=== PATIENT | female | born 1950 | race Caucasian/White ===

== ENCOUNTER 2019-05-19 08:04 | Inpatient (IN) ==
--- NOTE | 2019-05-05 13:16 | PAT Medication Instructions ---
Medication Instructions Date of Service May 05, 2019 Home Medications Lactobacillus acidophilus [Florajen] 460 mg PO DAILY artificial tears(hypromellose) [Systane Gel] 1 drp OPHTHALMIC (EYE) HS cholecalciferol (vitamin D3) [Vitamin D3] 125 mcg PO QAM cyanocobalamin (vitamin B-12) [Vitamin B-12] 1,000 mcg PO QAM cyclosporine [Restasis] 1 drp OPHTHALMIC (EYE) BID diclofenac sodium 4 g TOPICAL BID PRN duloxetine 60 mg PO QAM labetalol 200 mg PO BID latanoprost 1 drp OPHTHALMIC (EYE) HS levothyroxine [Synthroid] 137 mcg PO QAM lorazepam 0.5 mg PO BID PRN meclizine 25 mg PO UD PRN meloxicam 15 mg PO UD PRN solifenacin 5 mg PO QAM ASK your surgeon for instructions meloxicam 15 mg PO UD PRN STOP taking 24 hours before surgery diclofenac sodium 4 g TOPICAL BID PRN DO NOT take the morning of surgery Lactobacillus acidophilus [Florajen] 460 mg PO DAILY cholecalciferol (vitamin D3) [Vitamin D3] 125 mcg PO QAM cyanocobalamin (vitamin B-12) [Vitamin B-12] 1,000 mcg PO QAM solifenacin 5 mg PO QAM Take morning of surgery With a small sip of water, OTHERWISE NOTHING TO EAT OR DRINK AFTER MIDNIGHT: cyclosporine [Restasis] 1 drp OPHTHALMIC (EYE) BID duloxetine 60 mg PO QAM labetalol 200 mg PO BID levothyroxine [Synthroid] 137 mcg PO QAM lorazepam 0.5 mg PO BID PRN (if needed) meclizine 25 mg PO UD PRN (if needed) Take evening before surgery artificial tears(hypromellose) [Systane Gel] 1 drp OPHTHALMIC (EYE) HS cyclosporine [Restasis] 1 drp OPHTHALMIC (EYE) BID labetalol 200 mg PO BID latanoprost 1 drp OPHTHALMIC (EYE) HS lorazepam 0.5 mg PO BID PRN (if needed) meclizine 25 mg PO UD PRN (if needed) Other Notes If you have any questions please call us at [phone] or [phone] or [phone] or [phone]
--- NOTE | 2019-05-06 12:29 | Anesthesiology Consultation ---
Date of Service May 06, 2019 Assessment & Plan (1) Encounter for pre-operative examination: - Cardiology: 05/03/19: "Low to moderate risk" - Anxious RE surgery: requests anxiolytic prior to surgery if possible. Chart Review Chart Review: Acceptable Risk for Surgery and Patient seen in Pre Admission Testing Teaching & Discussion Pre-Anesthesia Teaching/Discussion Notes: Instructed NPO after midnight before surgery,except medications with 15 cc of water. Medication instructions provided according to the PAT guidelines. History Surgery Operation Date: 05/19/19 09:20 Proposed Procedures p Left Total Shoulder Arthroplasty Cemented - [employer] Gaming MD Height/Weight Height: 5 ft 4 in Weight: 107.9 kg Allergies Allergy/AdvReac Type Severity Reaction Status Date / Time carbamazepine Allergy Severe MOBILITY Verified 05/05/19 12:19 ISSUES, INCRASED ANXIETY tramadol Allergy Severe LEGS HEAVY Verified 05/05/19 12:19 AND NUMBNESS, DISORIENTED amlodipine Allergy Unknown LEG AND Verified 05/05/19 12:17 FOOT SWELLING Cephalosporins Allergy Unknown ITCHINESS Verified 05/05/19 12:17 diclofenac [From Voltaren] Allergy Unknown HX OF Verified 05/05/19 12:17 ITCHINESS - SEE NOTES BELOW nabumetone Allergy Unknown EYE Verified 05/05/19 12:17 SWELLING oxcarbazepine Allergy Unknown BLOOD Verified 05/05/19 12:19 [From Trileptal] PRESSURE AND PULSE INCREASED amitriptyline AdvReac Unknown COUGHING Verified 05/05/19 12:19 lisinopril AdvReac Unknown Cough Verified 05/05/19 12:17 metoprolol AdvReac Unknown NOT Verified 05/05/19 12:17 EFFECTIVE valsartan AdvReac Unknown NOT Verified 05/05/19 12:17 EFFECTIVE Medications Home Medications Medication Instructions Recorded Confirmed Last Taken Lactobacillus acidophilus 460 mg PO DAILY 05/05/19 05/05/19 Unknown [Florajen] artificial tears(hypromellose) 1 drp OPHTHALMIC (EYE) HS 05/05/19 05/05/19 Unknown [Systane Gel] cholecalciferol (vitamin D3) 125 mcg PO QAM 05/05/19 05/05/19 Unknown [Vitamin D3] cyanocobalamin (vitamin B-12) 1,000 mcg PO QAM 05/05/19 05/05/19 Unknown [Vitamin B-12] cyclosporine [Restasis] 1 drp OPHTHALMIC (EYE) BID 05/05/19 05/05/19 Unknown diclofenac sodium 4 g TOPICAL BID PRN 05/05/19 05/05/19 Unknown duloxetine 60 mg PO QAM 05/05/19 05/05/19 05/05/19 labetalol 200 mg PO BID 05/05/19 05/05/19 05/05/19 latanoprost 1 drp OPHTHALMIC (EYE) HS 05/05/19 05/05/19 Unknown levothyroxine [Synthroid] 137 mcg PO QAM 05/05/19 05/05/19 05/05/19 lorazepam 0.5 mg PO BID PRN 05/05/19 05/05/19 Unknown meclizine 25 mg PO UD PRN 05/05/19 05/05/19 Unknown meloxicam 15 mg PO UD PRN 05/05/19 05/05/19 Unknown solifenacin 5 mg PO QAM 05/05/19 05/05/19 05/05/19 hydrochlorothiazide 25 mg PO DAILY 05/06/19 05/06/19 Unknown Past Medical History Medical History Acid reflux controlled Anxiety situational CAD (coronary artery disease) mild, non-obstructive per 03/2019 cath Dry mouth Fatigue upcoming sleep study 05/17/19-results will not be available by time of surgery (patient denies snoring/apnea) Glaucoma (increased eye pressure) History of Chavez's palsy History of thyroid cancer s/p xrt (pill) s/p thyroidectomy History of trigeminal neuralgia Hyperlipidemia Hypertension Hypothyroidism Low back problem Morbid obesity Mouth problem gum sensitivity Exercise / Class Metabolic Activity III < 4 Walking/Shop/Light housework Past Family History Family History Sister Family history of thyroid cancer Brother Family history of colon cancer Past Surgical History Surgical History History of back surgery MINIMALLY INVASIVE X3 History of cardiac cath 03/2018- no stents History of carpal tunnel surgery of left wrist History of carpal tunnel surgery of right wrist History of colonoscopy History of endoscopy History of hysterectomy History of shoulder surgery LEFT History of surgery FOR TRIGEMINAL NEURALGIA History of surgery on extremity R LEG CAMELIA FEMUR AND SINCE REMOVED History of surgery on extremity R LEG TIB/FIB History of thyroidectomy History of total right knee replacement History of trigger finger R Past Anesthesia History No Hx of Anesthesia Complications Sister- with thyroid surgery had to do emergency post-op trach after being extubated. No further details. History of PONV No Hx of PONV (per patient pre-treatment medication has been given) and Hx of Motion Sickness Social History Smoking Status: Never smoker Do You Dip or Chew Tobacco: No Hx Alcohol Use: No Hx Substance Use: No substance use type: does not use Review of Systems Patient denies chest pain, shortness of breath, dyspnea on exertion, joint pain, reflux, cough, wheezing, palpitations. Physical Exam Vital Signs VITALS BP 169/92 P 87 TEMP 98.6 SP02 94%RA RESP 18 PHYSICAL Mildly decreased cervical extension. Full TMJ range of motion. TMD 3 finger breaths Mallampati Score 2 Dentition: missing molars and left upper front side teeth Lungs: clear throughout to auscultation Cardiac: regular rate and rhythm, no murmurs noted Spine: normal Carotid arteries: negative bruit Extremities: no edema Testing Laboratory Results 05/06/19 12:50 05/06/19 12:50 PT 10.3 Seconds (9.0-12.0) 05/06/19 12:50 INR 1.0 (0.9-1.1) 05/06/19 12:50 APTT 25.6 Seconds (21.0-31.0) 05/06/19 12:50 Hemoglobin A1c 6.0 % (4.5-5.6) H 05/06/19 12:50 Urine Color Yellow 05/06/19 12:50 Urine Appearance Clear (Clear) 05/06/19 12:50 Urine pH 7.0 (4.5-7.5) 05/06/19 12:50 Ur Specific [place] 1.013 (1.000-1.030) 05/06/19 12:50 Urine Protein Negative (Negative) 05/06/19 12:50 Urine Glucose (UA) Negative (Negative) 05/06/19 12:50 Urine Ketones Negative (Negative) 05/06/19 12:50 Urine Nitrite Negative (Negative) 05/06/19 12:50 Ur Leukocyte Esterase Negative (Negative) 05/06/19 12:50 Blood Type O Positive 05/06/19 12:50 Antibody Screen NEGATIVE 05/06/19 12:50 Electrocardiogram Date: 05/03/19 SR at 78bpm. Slight high-lateral repolarization disturbance, consider ischemia/LV overload. Negative T in I with small negative T in AVL. Long QT interval. *EKG done and reviewed and cardiology clearance appointment. [place] Sinus rhythm and no further cardiac workup needed prior to surgery. S/P 03/2019 cardiac cath with mild, non-obstructive disease. Consider low to moderate risk for upcoming surgery per cardiology 05/03/19* Chest X-Ray Date: 05/06/19 Cardiomegaly and mild basilar atelectasis. No active disease in the chest. Echocardiogram Date: 03/08/19 LVEF 55%. Grade I DD. Career Development Counselor pulmonic regurgitation. Stress Test Date: 03/08/19 Type: nuclear Moderate anterior and apical ischemia (medium reversible anterior defect, small reversible apical defect). LVEF 56%. Subsequent cardiac cath 03/2019 with non- obstructive disease* Cardiac Catheterization Date: 04/01/19 Mild, non-obstructive CAD.
--- NOTE | 2019-05-06 13:25 | XRay Report ---
XR chest Pre-admission PA/Lat CLINICAL HISTORY: Preoperative chest COMPARISON STUDY: No previous studies for comparison. FINDINGS: The heart is mildly enlarged. There are basilar atelectatic changes. There is no lobar cons olidation. There is no failure. There are no pleural effusions. Degenerative changes are present with in the dorsal spine.[ IMPRESSION: Cardiomegaly and mild basilar atelectasis. No active disease in the chest. ACT 112: Negative or not required by law. Electronically signed by: Kwaku Ontiveros M.D. 05/06/2019 1:24 PM
[2019-05-06 15:22] LABS: Appearance Urine Clear (Clear); Basophils # (auto) 0.04 K/uL (0-0.2); Basophils % (auto) 0.6 %; Bilirubin Urine Negative (Negative); Blood Urine Negative (Negative); Color Urine Yellow; Eosinophils # (auto) 0.28 K/uL (0-0.5); Eosinophils % (auto) 4.1 %; Glucose Urine UA Negative (Negative); Hematocrit (blood only) 43.7 % (37-47); Hemoglobin 14.1 g/dL (12.0-16.0); Immature Granulocytes # (auto) 0.02 K/uL (0.00-0.02); Immature Granulocytes % (auto) 0.3 %; Ketones Urine Negative (Negative); Leukocyte Esterase Urine Negative (Negative); Lymphocytes # (auto) 1.78 K/uL (1.2-3.4); Mean Corpuscular Hemoglobin 29.2 pg (25-34); Mean Corpuscular Hgb Conc 32.3 g/dL (32-36); Mean Corpuscular Volume 90.5 fL (80-100); Mean Platelet Volume 9.4 fL (7.4-10.4); Monocytes # (auto) 0.55 K/uL (0.11-0.59); Neutrophils # (auto) 4.18 K/uL (1.4-6.5); Nitrite Urine Negative (Negative); Platelet Count 254 K/uL (130-400); Protein Urine Negative (Negative); RDW Coefficient of Variation 13.4 % (11.5-14.5); RDW Standard Deviation 44.7 fL (36.4-46.3); Red Blood Count 4.83 M/uL (4.2-5.4); Specific Gravity Urine 1.013 (1.000-1.030); Urobilinogen Urine Negative (Negative); White Blood Count 6.85 K/uL (4.8-10.8)
[2019-05-06 15:39] LABS: Partial Thromboplastin Ratio 0.9; Partial Thromboplastin Time 25.6 Seconds (21.0-31.0); Prothrombin Time 10.3 Seconds (9.0-12.0)
[2019-05-06 15:46] LABS: Albumin Level 3.8 gm/dl (3.4-5.0); Calcium 9.8 mg/dl (8.5-10.1); Creatinine Clr Calc Pharmacy 61.6 ml/min; Est GFR (African American) 64.5; Est GFR (Non-African American) 55.7; Potassium 4.4 mmol/L (3.5-5.1)
[2019-05-07 05:30] LABS: Estimated Average Glucose 126 mg/dl
--- NOTE | 2019-05-12 08:25 | History & Physical Report ---
Date of Service May 12, 2019 Assessment & Plan (1) Primary osteoarthritis, left shoulder: Treatment options discussed. She has failed conservative measures as above. Risks, benefits and alternatives to surgery including but not limited to infection, DVT, pain, stiffness, need for revision surgery, damage to blood vessels, damage to nerves, PE, , were discussed with the patient and they wish to proceed. Plan will be for left total shoulder arthroplasty on 05/19/2019 at [facility]. Will plan on home with HHPT upon discharge from the hospital. Will plan on daily low dose aspirin post op for DVT prophylaxis. All questions answered. F/u post operatively. History of Present Illness Chief Complaint: Left shoulder pain Primary Care Provider: Gayatri Boggs PA-C 68 year old female with PMHx significant for GERD, anxiety, CAD, glaucoma, hypothyroidism secondary to history of Ca, HTN, high cholesterol presents with ongoing left shoulder pain. She has failed conservative measures including intraarticular and subacromial injections, therapy, and anti-inflammatories. Previously has had arthroscopic debridement with only temporary relief of her symptoms. Patient denies headaches, sweats, fevers, chills, double vision, blurred vision, cough, sore throat, dysphagia, chest pain, sob, wheezing, n/v/d/c, numbness, tingling, fatigue, urinary symptoms, mood disorders. ROS positive for Left shoulder pain and stiffness. Allergies Allergy/AdvReac Type Severity Reaction Status Date / Time carbamazepine Allergy Severe MOBILITY Verified 05/05/19 12:19 ISSUES, INCRASED ANXIETY tramadol Allergy Severe LEGS HEAVY Verified 05/05/19 12:19 AND NUMBNESS, DISORIENTED amlodipine Allergy Unknown LEG AND Verified 05/05/19 12:17 FOOT SWELLING Cephalosporins Allergy Unknown ITCHINESS Verified 05/05/19 12:17 diclofenac [From Voltaren] Allergy Unknown HX OF Verified 05/05/19 12:17 ITCHINESS - SEE NOTES BELOW nabumetone Allergy Unknown EYE Verified 05/05/19 12:17 SWELLING oxcarbazepine Allergy Unknown BLOOD Verified 05/05/19 12:19 [From Trileptal] PRESSURE AND PULSE INCREASED amitriptyline AdvReac Unknown COUGHING Verified 05/05/19 12:19 lisinopril AdvReac Unknown Cough Verified 05/05/19 12:17 metoprolol AdvReac Unknown NOT Verified 05/05/19 12:17 EFFECTIVE valsartan AdvReac Unknown NOT Verified 05/05/19 12:17 EFFECTIVE Home Medications Home Medications Medication Instructions Recorded Confirmed Type Lactobacillus acidophilus 460 mg PO DAILY 05/05/19 05/05/19 History [Florajen] artificial tears(hypromellose) 1 drp OPHTHALMIC (EYE) HS 05/05/19 05/05/19 History [Systane Gel] cholecalciferol (vitamin D3) 125 mcg PO QAM 05/05/19 05/05/19 History [Vitamin D3] cyanocobalamin (vitamin B-12) 1,000 mcg PO QAM 05/05/19 05/05/19 History [Vitamin B-12] cyclosporine [Restasis] 1 drp OPHTHALMIC (EYE) BID 05/05/19 05/05/19 History diclofenac sodium 4 g TOPICAL BID PRN 05/05/19 05/05/19 History duloxetine 60 mg PO QAM 05/05/19 05/05/19 History labetalol 200 mg PO BID 05/05/19 05/05/19 History latanoprost 1 drp OPHTHALMIC (EYE) HS 05/05/19 05/05/19 History levothyroxine [Synthroid] 137 mcg PO QAM 05/05/19 05/05/19 History lorazepam 0.5 mg PO BID PRN 05/05/19 05/05/19 History meclizine 25 mg PO UD PRN 05/05/19 05/05/19 History meloxicam 15 mg PO UD PRN 05/05/19 05/05/19 History solifenacin 5 mg PO QAM 05/05/19 05/05/19 History hydrochlorothiazide 25 mg PO DAILY 05/06/19 05/06/19 History Past Med/Surg History Medical History Acid reflux controlled Anxiety situational CAD (coronary artery disease) mild, non-obstructive per 03/2019 cath Dry mouth Fatigue upcoming sleep study 05/17/19-results will not be available by time of surgery (patient denies snoring/apnea) Glaucoma (increased eye pressure) History of Chavez's palsy History of thyroid cancer s/p xrt (pill) s/p thyroidectomy History of trigeminal neuralgia Hyperlipidemia Hypertension Hypothyroidism Low back problem Morbid obesity Mouth problem gum sensitivity Surgical History History of back surgery MINIMALLY INVASIVE X3 History of cardiac cath 03/2018- no stents History of carpal tunnel surgery of left wrist History of carpal tunnel surgery of right wrist History of colonoscopy History of endoscopy History of hysterectomy History of shoulder surgery LEFT History of surgery FOR TRIGEMINAL NEURALGIA History of surgery on extremity R LEG CAMELIA FEMUR AND SINCE REMOVED History of surgery on extremity R LEG TIB/FIB History of thyroidectomy History of total right knee replacement History of trigger finger R Family History Sister Family history of thyroid cancer Brother Family history of colon cancer Social History Preferred Language: Turkish Communication Ability: Effective [employer] Required: No Beliefs That Will Affect Care: None Current Living Situation: Spouse Other Information That Helps Us Care for You: No Feels Safe at Home: Yes Smoking Status: Never smoker Do You Dip or Chew Tobacco: No ; Hx Alcohol Use: No Hx Substance Use: No Review of Systems All systems reviewed & are unremarkable except as noted in HPI & below Physical Exam Constitutional: well developed and well nourished; no acute distress Eyes: PERRL, conjunctivae normal, anicteric sclerae ENMT: external ear and nose normal, oropharynx normal Neck: trachea midline, no thyromegaly Respiratory: normal respiratory effort, lungs clear to auscultation Cardiovascular: RRR, no murmur, no edema Musculoskeletal: Left shoulder-Crepitus and pain with ROM. ROM decreased in all directions secondary to pain. Distally sensation and n/v status intact. Skin: no rashes, warm and dry Neurologic: patellar DTR's 2+ bilat, sensation intact Psychiatric: A+Ox3, euthymic affect Results & Data Laboratory Results Lab Results 05/06/19 05/06/19 05/06/19 Range/Units 12:50 12:50 12:50 WBC 6.85 (4.8-10.8) K/uL RBC 4.83 (4.2-5.4) M/uL Hgb 14.1 (12.0-16.0) g/dL Hct 43.7 (37-47) % MCV 90.5 (80-100) fL MCH 29.2 (25-34) pg MCHC 32.3 (32-36) g/dL RDW Std Deviation 44.7 (36.4-46.3) fL RDW Coeff of Setephania 13.4 (11.5-14.5) % Plt Count 254 (130-400) K/uL MPV 9.4 (7.4-10.4) fL Immature Gran % (Auto) 0.3 % Neut % (Auto) 61.0 % Lymph % (Auto) 26.0 % [place] % (Auto) 8.0 % Eos % (Auto) 4.1 % Baso % (Auto) 0.6 % Immature Gran # (Auto) 0.02 (0.00-0.02) K/uL Neut # (Auto) 4.18 (1.4-6.5) K/uL Lymph # (Auto) 1.78 (1.2-3.4) K/uL [place] # (Auto) 0.55 (0.11-0.59) K/uL Eos # (Auto) 0.28 (0-0.5) K/uL Baso # (Auto) 0.04 (0-0.2) K/uL PT 10.3 (9.0-12.0) Seconds INR 1.0 (0.9-1.1) APTT 25.6 (21.0-31.0) Seconds PTT Ratio 0.9 Sodium 138 (136-145) mmol/L Potassium 4.4 (3.5-5.1) mmol/L Chloride 100 (98-107) mmol/L Carbon Dioxide 35 H (21-32) mmol/L Anion Gap 3.0 (3-11) BUN 12 (7-18) mg/dl Creatinine 1.02 (0.6-1.2) mg/dl Est Cr Clr Drug Dosing 61.6 ml/min Est GFR ( Amer) 64.5 Est GFR (Non-Af Amer) 55.7 BUN/Creatinine Ratio 12.0 (10-20) Glucose 111 H (70-99) mg/dl Estimat Average Glucose mg/dl Hemoglobin A1c (4.5-5.6) % Calcium 9.8 (8.5-10.1) mg/dl Albumin 3.8 (3.4-5.0) gm/dl Urine Color Urine Appearance (Clear) Urine pH (4.5-7.5) Ur Specific [place] (1.000-1.030) Urine Protein (Negative) Urine Glucose (UA) (Negative) Urine Ketones (Negative) Urine Blood (Negative) Urine Nitrite (Negative) Urine Bilirubin (Negative) Urine Urobilinogen (Negative) Ur Leukocyte Esterase (Negative) Blood Type Antibody Screen 05/06/19 05/06/19 05/06/19 Range/Units 12:50 12:50 12:50 WBC (4.8-10.8) K/uL RBC (4.2-5.4) M/uL Hgb (12.0-16.0) g/dL Hct (37-47) % MCV (80-100) fL MCH (25-34) pg MCHC (32-36) g/dL RDW Std Deviation (36.4-46.3) fL RDW Coeff of Estephania (11.5-14.5) % Plt Count (130-400) K/uL MPV (7.4-10.4) fL Immature Gran % (Auto) % Neut % (Auto) % Lymph % (Auto) % [place] % (Auto) % Eos % (Auto) % Baso % (Auto) % Immature Gran # (Auto) (0.00-0.02) K/uL Neut # (Auto) (1.4-6.5) K/uL Lymph # (Auto) (1.2-3.4) K/uL [place] # (Auto) (0.11-0.59) K/uL Eos # (Auto) (0-0.5) K/uL Baso # (Auto) (0-0.2) K/uL PT (9.0-12.0) Seconds INR (0.9-1.1) APTT (21.0-31.0) Seconds PTT Ratio Sodium (136-145) mmol/L Potassium (3.5-5.1) mmol/L Chloride (98-107) mmol/L Carbon Dioxide (21-32) mmol/L Anion Gap (3-11) BUN (7-18) mg/dl Creatinine (0.6-1.2) mg/dl Est Cr Clr Drug Dosing ml/min Est GFR ( Amer) Est GFR (Non-Af Amer) BUN/Creatinine Ratio (10-20) Glucose (70-99) mg/dl Estimat Average Glucose 126 mg/dl Hemoglobin A1c 6.0 H (4.5-5.6) % Calcium (8.5-10.1) mg/dl Albumin (3.4-5.0) gm/dl Urine Color Yellow Urine Appearance Clear (Clear) Urine pH 7.0 (4.5-7.5) Ur Specific [place] 1.013 (1.000-1.030) Urine Protein Negative (Negative) Urine Glucose (UA) Negative (Negative) Urine Ketones Negative (Negative) Urine Blood Negative (Negative) Urine Nitrite Negative (Negative) Urine Bilirubin Negative (Negative) Urine Urobilinogen Negative (Negative) Ur Leukocyte Esterase Negative (Negative) Blood Type O Positive Antibody Screen NEGATIVE Diagnostic Findings Left shoulder radiographs: Significant degenerative changes and joint space narrowing GH joint
[~2019-05-19 08:04] MED LIST: ACETAMINOPHEN 500 MG TAB PO SCH; BUPIVACAINE/EPINEPHRINE 0.25% 1:200,000 30 ML VIAL ONE; CeleBREX 200 MG CAP PO SCH; FAMOTIDINE 20 MG TAB PO SCH; GABAPENTIN 300 MG CAP PO SCH; LR 15ML/HR IV SCH; METOCLOPRAMIDE HCL 10 MG TABLET PO SCH; OXYCODONE HCL 10 MG TABCR (OXYCONTIN) PO SCH; VANCOMYCIN HCL 1,000 MG/270 ML BAG IV SCH; VANCOMYCIN HCL 1,750 MG in SODIUM CHLORIDE 0.9% 500 ML IV SCH; dexAMETHasone 4 MG TAB PO SCH
--- NOTE | 2019-05-19 08:52 | History & Physical Bridge Note ---
Date of Service May 19, 2019 History & Physical Bridge Note I have examined the patient, reviewed the History & Physical and in the interval since the performance of the History & Physical I have noted the following changes of clinical significance: no changes noted
[2019-05-19] MEDS ORDERED: THROMBIN FOR SOLN 20000 UNIT KIT ONE (09:10)
[2019-05-19] MEDS ORDERED: VANCOMYCIN HCL 1000MG/20ML VIAL ONE (09:10)
[2019-05-19] MEDS ORDERED: fentaNYL citrate 100 MCG/2 ML VIAL ONE (09:11)
[2019-05-19] MEDS ORDERED: PHENYLEPHRINE HCL 10 MG/ML VIAL ONE (09:11)
[2019-05-19] MEDS ORDERED: ePHEDrine sulfate 50 MG/ML AMP ONE (09:11)
[2019-05-19] MEDS ORDERED: MIDAZOLAM HCL 1 MG/ML 2ML VIAL ONE ×2 (09:11)
[2019-05-19] MEDS ORDERED: ONDANSETRON INJ 2 MG/ML 2 ML VIAL ONE (09:11)
[2019-05-19] MEDS ORDERED: NEOSTIGMINE METHYLSULFATE 5 MG/5 ML SYR ONE (09:11)
[2019-05-19] MEDS ORDERED: SUCCINYLCHOLINE CHLORIDE 20 MG/ML 10 ML VIAL ONE (09:11)
[2019-05-19] MEDS ORDERED: DEXAMETHASONE SOD INJ 4 MG/ML VIAL ONE (09:11)
[2019-05-19] MEDS ORDERED: PROPOFOL IV EMULSION 10 MG/ML 20 ML VIAL IV ONE (09:11)
[2019-05-19] MEDS ORDERED: GLYCOPYRROLATE 0.2 MG/ML VIAL ONE (09:11)
[2019-05-19] MEDS ORDERED: LIDOCAINE HCL 2% 2 ML VIAL/AMP(20MG/ML) INFIL ONE (09:11)
[2019-05-19] MEDS ORDERED: BACITRACIN INJ 50,000 UNIT VIAL ONE (09:11)
[2019-05-19] MEDS ORDERED: PROMETHAZINE HCL 12.5 MG in SODIUM CHLORIDE 0.9% 50 ML IV PRN (10:13)
[2019-05-19] MEDS ORDERED: ATROPINE SULFATE 0.1 MG/ML 10ML SYR IV PRN (10:13)
[2019-05-19] MEDS ORDERED: fentaNYL citrate 100 MCG/2 ML VIAL IV PRN (10:13)
[2019-05-19] MEDS ORDERED: ePHEDrine sulfate 50 MG/ML AMP IV PRN (10:13)
[2019-05-19] MEDS ORDERED: ONDANSETRON INJ 2 MG/ML 2 ML VIAL IV PRN ×2 (10:13→15:29)
[2019-05-19] MEDS ORDERED: ePHEDrine sulfate 50 MG/ML SYR ONE (11:16)
[2019-05-19] MEDS: ROPIVACAINE 0.5% HCL/PF 150 MG, BUPIVACAINE 0.5% MPF 30 ML, EPINEPHrine 30MG/30ML (OR U... INSTIL SCH (13:15)
--- NOTE | 2019-05-19 13:27 | Operative Report ---
Post Operative Report Pre & Post Diagnosis Operation Date: 05/19/19 10:20 Pre-Op Diagnosis: Osteoarthritis, Left Shoulder Post-Op Diagnosis: Osteoarthritis, Left Shoulder I identified the patient and participated in the time-out.: Yes Procedure Operation Date: 05/19/19 10:20 Actual Procedures p Left Total Shoulder Arthroplasty(Left) - Parish Gaming MD Surgeon Parish Gaming MD Functional Tester Typewriters Alex Hernandez PA-C Estimated Blood Loss 50 Findings Consistent with Post-Op Diagnosis Specimens Bone and tissue Drains None Anesthesia Type General Regional Complications none Disposition Accompanied Patient To Recovery: No Disposition: Recovery Room Indications The patient is a 68-year-old female longstanding arthritic change in the left shoulder. She has failed conservative measures including cortisone injection, anti-inflammatory medications, arthroscopic debridement and physical therapy. She wishes to proceed with left total shoulder arthroplasty Description of Procedure Risks, benefits and alternatives to surgery including, but not limited to, infection DVT, pain, stiffness, need for revision surgery, failure to relieve all symptoms, damage to blood vessels, damage to nerves, risk of anesthesia were discussed with the patient and they wished to proceed. The patient was identified. Laterality was confirmed and marked. The patient received a preoperative antibiotic as well as an interscalene block. They were transferred to the operating room and placed in the supine position and induced into general endotracheal anesthesia per the anesthesia staff. The patient was then safely transferred to a slight beachchair position. The patient was secured in the Tenet positioner. All pressure points were well padded. The shoulder was prepped and draped in the usual sterile manner with ChloraPrep. I made a longitudinal incision just lateral to the coracoid, sharply incising through the skin and utilizing Bovie electrocautery to achieve hemostasis. I identified the cephalic vein and mobilized it laterally with the deltoid. I mobilize the pectoralis and mobilize this medially releasing a small portion of the upper border of the pec tendon to improve visualization. I then identified and mobilized the conjoined tendon. I identified the long head of the biceps tendon. The long head of the biceps tendon had significant tendinosis and tearing proximally. I performed an in situ biceps tenodesis with interrupted #2 FiberWire suture. I then released the subscapularis. I tagged this with interrupted 0 Ethibond suture for later repair. I pinned into place my humeral head version cutting guide and made my humeral head resection. Inferior osteophytes were removed with a rongeur. I then sequentially reamed and sequentially broached. I then placed the trial humeral stem into the shoulder. I placed retractors around the glenoid and then excised the residual biceps tendon stump and glenoid labrum. I elevated the soft tissues and the inferior aspect of the glenoid to improve exposure and released tissues circumferentially. I then positioned and drilled for the central post. I then drilled for the 3 peripheral pegs. I placed a trial glenoid into position and confirmed the size of the implant. I then placed epinephrine-soaked sponges into the peg holes. The central caged post was bone grafted with bone taken from the humeral head. The peripheral peg holes were cemented with Palacos G cement. We had a little difficulty in getting the cage glenoid aligned properly. Some of the cement in the peripheral pegs had started to set up and it would not advance. The polyethylene was taken out of shoulder cement was removed from the back of this. Any cement there was not able to be removed from the glenoid with hemostat was then re-drilled with the same drill we used for the peripheral pegs. We then re-cemented the peripheral peg holes as well as the back of the glenoid. The definitive polyethylene was then impacted into place. I then removed the trial humeral stem . I then drilled holes in my subscapularis repair. I placed a total of 3 #2 FiberWire sutures through the drill holes and placed them in a looped fashion around the stem. I then placed the definitive humeral stem. I trialed off of the definitive stem. The definitive components used were [employer] Equinox: Preserved short humeral press-fit stem: 10 Glenoid: Large alpha Replicator plate: 4.5 Humeral head: 44 x 17 mm I thoroughly irrigated the wound. Deep tissues were anesthetized with an orthomix solution. I then locked replicator plate into position with a torque limiting screw. I then impacted the definitive humeral head into position. I then reduced the shoulder. There was good range of motion and good stability after the reduction. I used the #2 FiberWire suture for a medial row repair of the subscapularis. I then performed a lateral row repair with a running #5 FiberWire suture. The rotator interval was closed with interrupted #2 FiberWire suture. The wound was again thoroughly irrigated and a Betadine soak was performed. A deep drain was placed. The deltopectoral interval was closed with interrupted #1 Ethibond suture. The subcutaneous tissue was closed with interrupted 2-0 Vicryl suture. The skin was closed with chio. A sterile dressing was applied. A sling was placed. All needle and sponge counts were correct at the end of the procedure. The patient was transferred to the PACU in stable condition without apparent complication. The PA-C was necessary for assistance with procedure for assistance in positioning, prepping, draping, retraction and closure. I attest to the content of the Intraoperative Record and any orders documented therein. Any exceptions are noted below.
--- NOTE | 2019-05-19 14:22 | XRay Report ---
XR shoulder LT min 2V routine HISTORY: 68 years-old Female Post shoulder surgery left shoulder total joint arthroplasty COMPARISON: Chest radiograph 05/06/2019 TECHNIQUE: 2 views of the left shoulder FINDINGS: Left shoulder total joint arthroplasty with overlying skin chio. Expected postsurgical soft tissue swelling and deep tissue air. No acute fracture or retained foreign body identified. Cardiomegaly. L eft lung base opacities with possible left pleural effusion. IMPRESSION: Left shoulder arthroplasty with expected postoperative findings. ACT 112: Negative or not required by law. The above report was generated using voice recognition software. It may contain grammatical, syntax o r spelling errors. Electronically signed by: Alexandre Vega M.D. 05/19/2019 2:21 PM
--- NOTE | 2019-05-19 14:48 | Anesthesiology Progress Note ---
Date of Service May 19, 2019 Anesthesia Post Procedure Vital Signs Vital Signs: Temp Pulse Pulse Resp BP Pulse Ox 05/19/19 14:30 36.9 C 108 H 15 119/90 15 L 05/19/19 14:20 36.9 C 107 H 22 127/74 95 05/19/19 14:10 103 H 17 127/74 95 05/19/19 14:00 100 H 17 124/74 95 05/19/19 13:54 36.2 C L 97 H 18 124/79 95 05/19/19 08:48 36.6 C 95 H 20 139/79 95 Transfer of Care Handoff Completed per policy Notes Mental Status: alert / awake / arousable Patient Amnestic to Procedure: Yes Nausea / Vomiting: adequately controlled Pain: adequately controlled Airway Patency, RR, SpO2: stable & adequate BP & HR: stable & adequate Hydration State: stable & adequate Anesthetic Complications: no major complications apparent
[2019-05-19] MEDS ORDERED: NALOXONE HCL 0.4 MG/1 ML VIAL/CARP IV PRN (15:29)
[2019-05-19] MEDS ORDERED: MAGNESIUM HYDROXIDE SUSP 30 ML UDC PO PRN (15:29)
[2019-05-19] MEDS ORDERED: HYDROmorphone INJ 0.5 MG/0.5 ML SYR IV PRN (15:29)
[2019-05-19] MEDS ORDERED: VANCOMYCIN CONSULT ACTIVE PRN (15:29)
[2019-05-19] MEDS ORDERED: METOCLOPRAMIDE HCL INJ 5 MG/ML 2 ML VIAL IV PRN (15:29)
[2019-05-19] MEDS ORDERED: bisacodyL 10 MG SUPP PR PRN (15:29)
[2019-05-19] MEDS ORDERED: INFLUENZA VACCINE HIGH DOSE 65+ 0.5 ML SYR IM ONE (15:34)
[2019-05-19] MEDS ORDERED: INFLUENZA ADMINISTRATION CHARGE ONE (15:34)
[2019-05-19] MEDS: SODIUM CHLORIDE 0.9% 1000ML 1,000 ML IV SCH (15:47)
[2019-05-19] MEDS: ACETAMINOPHEN 500 MG TAB PO SCH ×2 (15:51→21:40)
[2019-05-19] MEDS ORDERED: MECLIZINE HCL 25 MG TAB PO PRN (16:20)
[2019-05-19] MEDS ORDERED: VANCOMYCIN HCL 1,500 MG in SODIUM CHLORIDE 0.9% 500 ML IV SCH (20:30)
[2019-05-19] MEDS ORDERED: ARTIFICIAL TEARS OP OINT 3.5 GM TUBE OP SCH (21:00)
[2019-05-19] MEDS ORDERED: CARBOXYMETHYLCELLULOSE SODIUM 15 ML OP SCH (21:00)
[2019-05-19] MEDS ORDERED: LATANOPROST 0.005% OP SOLN 2.5 ML BTL OP SCH (21:00)
[2019-05-19] MEDS ORDERED: SENNA 8.6 MG TAB PO SCH (21:00)
[2019-05-19] MEDS: DOCUSATE SODIUM 100 MG CAP PO SCH (21:36)
[2019-05-19] MEDS: LABETALOL HCL 200 MG TAB PO SCH (21:37)
[2019-05-19] MEDS: OXYCODONE HCL IR 5 MG TAB (IMMEDIATE RELEASE) PO PRN (23:25)
[2019-05-20 05:17] LABS: Basophils # (auto) 0.02 K/uL (0-0.2); Basophils % (auto) 0.1 %; Hematocrit (blood only) 38.2 % (37-47); Hemoglobin 12.4 g/dL (12.0-16.0); Immature Granulocytes # (auto) 0.06 K/uL (0.00-0.02); Immature Granulocytes % (auto) 0.4 %; Lymphocytes # (auto) 1.11 K/uL (1.2-3.4); Lymphocytes % (auto) 7.6 %; Mean Corpuscular Hgb Conc 32.5 g/dL (32-36); Mean Corpuscular Volume 89.3 fL (80-100); Mean Platelet Volume 9.3 fL (7.4-10.4); Monocytes # (auto) 1.01 K/uL (0.11-0.59); Monocytes % (auto) 6.9 %; Neutrophils # (auto) 12.35 K/uL (1.4-6.5); Platelet Count 284 K/uL (130-400); RDW Coefficient of Variation 13.5 % (11.5-14.5); RDW Standard Deviation 43.8 fL (36.4-46.3); Red Blood Count 4.28 M/uL (4.2-5.4); White Blood Count 14.55 K/uL (4.8-10.8)
[2019-05-20 05:48] LABS: BUN Creatinine Ratio 12.6 (10-20); Calcium 8.4 mg/dl (8.5-10.1); Est GFR (African American) 57.6; Est GFR (Non-African American) 49.7; Potassium 3.4 mmol/L (3.5-5.1)
[2019-05-20] MEDS: OXYCODONE HCL IR 5 MG TAB (IMMEDIATE RELEASE) PO PRN ×2 (05:54→10:45)
[2019-05-20] MEDS: ACETAMINOPHEN 500 MG TAB PO SCH (05:55)
[2019-05-20] MEDS: ROPIVACAINE 0.5% HCL/PF 150 MG, BUPIVACAINE 0.5% MPF 30 ML, EPINEPHrine 30MG/30ML (OR U... INSTIL SCH (05:56)
[2019-05-20] MEDS ORDERED: LEVOTHYROXINE SODIUM 137 MCG TABLET PO SCH (06:30)
[2019-05-20] MEDS: SODIUM CHLORIDE 0.9% 1000ML 1,000 ML IV SCH (06:31)
--- NOTE | 2019-05-20 07:22 | Orthopedic Progress Note ---
Date of Service May 20, 2019 Assessment & Plan (1) Primary osteoarthritis, left shoulder: POD#1 Left TSA -Pain management -PT/OT-NWB LUE, no active shoulder motion, no ER >30 degrees -DVT prophylaxis-SCDs, ASA 81mg daily -D/C planning-plan for discharge home with HHPT likely later today Subjective POD#1 left TSA. Patient resting in bed comfortably. Pain controlled with ordered pain medications. No complaints at this time. Denies chest pain, sob, dizziness, n/v/d. Review of Systems Review of Systems: All systems reviewed & are unremarkable except as noted in HPI & below Physical Exam Physical Exam: Left arm sling in place. Dressing is c/d/i. Fingers mobile, good comp field case manager strength. Distally n/v status and sensation intact. Constitutional: well developed and well nourished; no acute distress Results & Data ([facility]) Vital Signs (Past 12 Hours) Vital Signs Temp Pulse Resp BP Pulse Ox 05/20/19 03:57 36.8 C 101 H 17 122/71 91 05/19/19 23:41 36.8 C 99 H 17 124/76 93 Laboratory Results H & H 05/06/19 05/20/19 Range/Units 12:50 04:52 Hgb 14.1 12.4 (12.0-16.0) g/dL Hct 43.7 38.2 (37-47) % Coagulation 05/06/19 Range/Units 12:50 INR 1.0 (0.9-1.1)
--- NOTE | 2019-05-20 07:22 | Anesthesiology Progress Note ---
Date of Service May 20, 2019 Anesthesia Post Procedure Vital Signs Vital Signs: Temp Pulse Pulse Pulse Resp BP Pulse Ox 05/20/19 07:18 36.8 C 110 H 101 H 17 122/71 91 05/20/19 03:57 36.8 C 101 H 17 122/71 91 05/19/19 23:41 36.8 C 99 H 17 124/76 93 05/19/19 16:00 36.6 C 110 H 17 123/63 93 05/19/19 15:30 36.9 C 109 H 17 135/78 93 05/19/19 15:14 37 C 110 H 14 128/81 94 05/19/19 14:50 36.9 C 110 H 19 151/70 H 19 L 05/19/19 14:40 36.9 C 108 H 25 H 154/71 H 25 L 05/19/19 14:30 36.9 C 108 H 15 119/90 15 L 05/19/19 14:20 36.9 C 107 H 22 127/74 95 05/19/19 14:10 103 H 17 127/74 95 05/19/19 14:00 100 H 17 124/74 95 05/19/19 13:54 36.2 C L 97 H 18 124/79 95 05/19/19 08:48 36.6 C 95 H 20 139/79 95 Pain Intensity Left Arm: Pain Intensity: 2 Notes Mental Status: alert / awake / arousable and participated in evaluation Patient Amnestic to Procedure: Yes Nausea / Vomiting: adequately controlled Pain: adequately controlled Airway Patency, RR, SpO2: stable & adequate BP & HR: stable & adequate Hydration State: stable & adequate Neuraxial Anesthesia: sensory block resolved Anesthetic Complications: Pt Satisfied with anesthetic care
[2019-05-20] MEDS: LABETALOL HCL 200 MG TAB PO SCH (08:51)
[2019-05-20] MEDS: DOCUSATE SODIUM 100 MG CAP PO SCH (08:52)
[2019-05-20] MEDS ORDERED: ASPIRIN 81 MG ECTAB PO SCH (09:00)
[2019-05-20] MEDS ORDERED: DULOXETINE HCL 60 MG CAP PO SCH (09:00)
[2019-05-20] MEDS ORDERED: CHOLECALCIFEROL 1,000 UNITS 25 MCG TAB PO SCH (09:00)
[2019-05-20] MEDS ORDERED: LACTOBACILLUS ACIDOPHILUS (FLORANEX) TAB PO SCH (09:00)
[2019-05-20] MEDS ORDERED: hydroCHLOROthiazide 25 MG TAB PO SCH (09:00)
[2019-05-20] MEDS ORDERED: MULTIVITAMIN TAB PO SCH (09:00)
[2019-05-20] MEDS ORDERED: CYANOCOBALAMIN 500 MCG TABLET (VITAMIN B-12) PO SCH (09:00)
--- NOTE | 2019-05-21 19:27 | Discharge Summary ---
Date of Service May 21, 2019 Admission HPI Per Admitting Provider 68 year old female with PMHx significant for GERD, anxiety, CAD, glaucoma, hypothyroidism secondary to history of Ca, HTN, high cholesterol presents with ongoing left shoulder pain. She has failed conservative measures including intraarticular and subacromial injections, therapy, and anti-inflammatories. Previously has had arthroscopic debridement with only temporary relief of her symptoms. Patient denies headaches, sweats, fevers, chills, double vision, blurred vision, cough, sore throat, dysphagia, chest pain, sob, wheezing, n/v/d/c, numbness, tingling, fatigue, urinary symptoms, mood disorders. ROS positive for Left shoulder pain and stiffness. Admission Exam Per Admitting Provider Constitutional: well developed and well nourished; no acute distress Eyes: PERRL, conjunctivae normal, anicteric sclerae ENMT: external ear and nose normal, oropharynx normal Neck: trachea midline, no thyromegaly Respiratory: normal respiratory effort, lungs clear to auscultation Cardiovascular: RRR, no murmur, no edema Musculoskeletal: Left shoulder-Crepitus and pain with ROM. ROM decreased in all directions secondary to pain. Distally sensation and n/v status intact. Skin: no rashes, warm and dry Neurologic: patellar DTR's 2+ bilat, sensation intact Psychiatric: A+Ox3, euthymic affect Principal Diagnosis Left shoulder osteoarthritis Discharge Exam Constitutional well developed and well nourished; no acute distress Eyes PERRL, conjunctivae normal, anicteric sclerae ENMT external ear and nose normal, oropharynx normal Neck trachea midline, no thyromegaly Respiratory normal respiratory effort, lungs clear to auscultation Cardiovascular RRR, no murmur, no edema Skin no rashes, warm and dry Neurologic patellar DTR's 2+ bilat, sensation intact Psychiatric A+Ox3, euthymic affect Discharge Data Allergies Allergy/AdvReac Type Severity Reaction Status Date / Time amlodipine Allergy Severe LEG AND Verified 05/19/19 08:34 FOOT SWELLING carbamazepine Allergy Severe MOBILITY Verified 05/05/19 12:19 ISSUES, INCRASED ANXIETY tramadol Allergy Severe LEGS HEAVY Verified 05/19/19 08:34 AND NUMBNESS, DISORIENTED cephalexin [From Keflex] Allergy Mild itch Verified 05/19/19 09:46 Cephalosporins Allergy Mild ITCHINESS Verified 05/19/19 08:34 diclofenac [From Voltaren] Allergy Mild HX OF Verified 05/19/19 08:34 ITCHINESS - SEE NOTES BELOW oxcarbazepine Allergy Mild BLOOD Verified 05/19/19 08:34 [From Trileptal] PRESSURE AND PULSE INCREASED nabumetone Allergy Unknown EYE Verified 05/19/19 08:34 SWELLING lisinopril AdvReac Severe Cough Verified 05/19/19 08:34 amitriptyline AdvReac Mild COUGHING Verified 05/19/19 08:34 Consultations 05/19/19 15:29 Consult Case Management - Discharge Planning Routine Procedures Performed Operation Date: 05/19/19 10:20 Actual Procedures p Left Total Shoulder Arthroplasty(Left) - Parish Gaming MD Ordered Studies 05/19/19 05:00 US - OR guided needle placemen Routine Hospital Course (1) Primary osteoarthritis, left shoulder: Patient presented for same day admission following left total shoulder osteoarthritis on 05/19/19. She tolerated procedure well. The Patient had an uneventful hospital course. Post-operatively, her activity was progressed and well tolerated. They participated in PT with. Labs remained stable- lowest hemoglobin recorded: 12.4. Pain controlled on oral medications. Please refer to daily progress notes and PT notes for complete details. After exam on 05/20/19, patient was felt to be stable for discharge home with home health PT planned. Patient will f/u in the office in about 2 weeks for further evaluation including x-rays and incision check, sooner if having any issues or concerns. Lab Results 05/06/19 05/06/19 05/06/19 Range/Units 12:50 12:50 12:50 WBC 6.85 (4.8-10.8) K/uL RBC 4.83 (4.2-5.4) M/uL Hgb 14.1 (12.0-16.0) g/dL Hct 43.7 (37-47) % MCV 90.5 (80-100) fL MCH 29.2 (25-34) pg MCHC 32.3 (32-36) g/dL RDW Std Deviation 44.7 (36.4-46.3) fL RDW Coeff of Estephania 13.4 (11.5-14.5) % Plt Count 254 (130-400) K/uL MPV 9.4 (7.4-10.4) fL Immature Gran % (Auto) 0.3 % Neut % (Auto) 61.0 % Lymph % (Auto) 26.0 % [place] % (Auto) 8.0 % Eos % (Auto) 4.1 % Baso % (Auto) 0.6 % Immature Gran # (Auto) 0.02 (0.00-0.02) K/uL Neut # (Auto) 4.18 (1.4-6.5) K/uL Lymph # (Auto) 1.78 (1.2-3.4) K/uL [place] # (Auto) 0.55 (0.11-0.59) K/uL Eos # (Auto) 0.28 (0-0.5) K/uL Baso # (Auto) 0.04 (0-0.2) K/uL PT 10.3 (9.0-12.0) Seconds INR 1.0 (0.9-1.1) APTT 25.6 (21.0-31.0) Seconds PTT Ratio 0.9 Sodium 138 (136-145) mmol/L Potassium 4.4 (3.5-5.1) mmol/L Chloride 100 (98-107) mmol/L Carbon Dioxide 35 H (21-32) mmol/L Anion Gap 3.0 (3-11) BUN 12 (7-18) mg/dl Creatinine 1.02 (0.6-1.2) mg/dl Est Cr Clr Drug Dosing 61.6 ml/min Est GFR ( Amer) 64.5 Est GFR (Non-Af Amer) 55.7 BUN/Creatinine Ratio 12.0 (10-20) Glucose 111 H (70-99) mg/dl Estimat Average Glucose mg/dl Hemoglobin A1c (4.5-5.6) % Calcium 9.8 (8.5-10.1) mg/dl Albumin 3.8 (3.4-5.0) gm/dl Urine Color Urine Appearance (Clear) Urine pH (4.5-7.5) Ur Specific [place] (1.000-1.030) Urine Protein (Negative) Urine Glucose (UA) (Negative) Urine Ketones (Negative) Urine Blood (Negative) Urine Nitrite (Negative) Urine Bilirubin (Negative) Urine Urobilinogen (Negative) Ur Leukocyte Esterase (Negative) Blood Type Antibody Screen 05/06/19 05/06/19 05/06/19 Range/Units 12:50 12:50 12:50 WBC (4.8-10.8) K/uL RBC (4.2-5.4) M/uL Hgb (12.0-16.0) g/dL Hct (37-47) % MCV (80-100) fL MCH (25-34) pg MCHC (32-36) g/dL RDW Std Deviation (36.4-46.3) fL RDW Coeff of Estephania (11.5-14.5) % Plt Count (130-400) K/uL MPV (7.4-10.4) fL Immature Gran % (Auto) % Neut % (Auto) % Lymph % (Auto) % [place] % (Auto) % Eos % (Auto) % Baso % (Auto) % Immature Gran # (Auto) (0.00-0.02) K/uL Neut # (Auto) (1.4-6.5) K/uL Lymph # (Auto) (1.2-3.4) K/uL [place] # (Auto) (0.11-0.59) K/uL Eos # (Auto) (0-0.5) K/uL Baso # (Auto) (0-0.2) K/uL PT (9.0-12.0) Seconds INR (0.9-1.1) APTT (21.0-31.0) Seconds PTT Ratio Sodium (136-145) mmol/L Potassium (3.5-5.1) mmol/L Chloride (98-107) mmol/L Carbon Dioxide (21-32) mmol/L Anion Gap (3-11) BUN (7-18) mg/dl Creatinine (0.6-1.2) mg/dl Est Cr Clr Drug Dosing ml/min Est GFR ( Amer) Est GFR (Non-Af Amer) BUN/Creatinine Ratio (10-20) Glucose (70-99) mg/dl Estimat Average Glucose 126 mg/dl Hemoglobin A1c 6.0 H (4.5-5.6) % Calcium (8.5-10.1) mg/dl Albumin (3.4-5.0) gm/dl Urine Color Yellow Urine Appearance Clear (Clear) Urine pH 7.0 (4.5-7.5) Ur Specific [place] 1.013 (1.000-1.030) Urine Protein Negative (Negative) Urine Glucose (UA) Negative (Negative) Urine Ketones Negative (Negative) Urine Blood Negative (Negative) Urine Nitrite Negative (Negative) Urine Bilirubin Negative (Negative) Urine Urobilinogen Negative (Negative) Ur Leukocyte Esterase Negative (Negative) Blood Type O Positive Antibody Screen NEGATIVE 05/20/19 05/20/19 Range/Units 04:52 04:52 WBC 14.55 H (4.8-10.8) K/uL RBC 4.28 (4.2-5.4) M/uL Hgb 12.4 (12.0-16.0) g/dL Hct 38.2 (37-47) % MCV 89.3 (80-100) fL MCH 29.0 (25-34) pg MCHC 32.5 (32-36) g/dL RDW Std Deviation 43.8 (36.4-46.3) fL RDW Coeff of Estephania 13.5 (11.5-14.5) % Plt Count 284 (130-400) K/uL MPV 9.3 (7.4-10.4) fL Immature Gran % (Auto) 0.4 % Neut % (Auto) 85.0 % Lymph % (Auto) 7.6 % [place] % (Auto) 6.9 % Eos % (Auto) 0.0 % Baso % (Auto) 0.1 % Immature Gran # (Auto) 0.06 H (0.00-0.02) K/uL Neut # (Auto) 12.35 H (1.4-6.5) K/uL Lymph # (Auto) 1.11 L (1.2-3.4) K/uL [place] # (Auto) 1.01 H (0.11-0.59) K/uL Eos # (Auto) 0.00 (0-0.5) K/uL Baso # (Auto) 0.02 (0-0.2) K/uL PT (9.0-12.0) Seconds INR (0.9-1.1) APTT (21.0-31.0) Seconds PTT Ratio Sodium 137 (136-145) mmol/L Potassium 3.4 L (3.5-5.1) mmol/L Chloride 103 (98-107) mmol/L Carbon Dioxide 28 (21-32) mmol/L Anion Gap 6.0 (3-11) BUN 14 (7-18) mg/dl Creatinine 1.12 (0.6-1.2) mg/dl Est Cr Clr Drug Dosing 57.0 ml/min Est GFR ( Amer) 57.6 Est GFR (Non-Af Amer) 49.7 BUN/Creatinine Ratio 12.6 (10-20) Glucose 144 H (70-99) mg/dl Estimat Average Glucose mg/dl Hemoglobin A1c (4.5-5.6) % Calcium 8.4 L (8.5-10.1) mg/dl Albumin (3.4-5.0) gm/dl Urine Color Urine Appearance (Clear) Urine pH (4.5-7.5) Ur Specific [place] (1.000-1.030) Urine Protein (Negative) Urine Glucose (UA) (Negative) Urine Ketones (Negative) Urine Blood (Negative) Urine Nitrite (Negative) Urine Bilirubin (Negative) Urine Urobilinogen (Negative) Ur Leukocyte Esterase (Negative) Blood Type Antibody Screen Total Time Total Time Spent Total Time Spent (In Minutes): 20 Discharge Plan Discharge Items Patient Disposition: Home - Home Health Services Reason For Visit: Osteoarthritis, Left Shoulder Discharge Diagnosis: Left shoulder osteoarthritis Activity: Per Instructions section Non-emergency contact: Surgeon Call non-emergency contact if: you have any medication questions, your pain is not controlled, your pain is worsening, your pain is concerning for you, you have a fever, your temperature is above 101 and your wound has increased drainage Follow-up/Referrals: Gayatri Boggs PA-C [Primary Care Provider] - Diet: Regular Addtl Attending Provider Instructions: ACTIVITY RECOMMENDATIONS: SELF CARE INSTRUCTIONS AFTER TOTAL SHOULDER ARTHROPLASTY A. You may do daily exercises as taught in physical therapy while in hospital. No lifting with the operative arm. Please schedule your outpatient physical therapy appointment to begin within 2-3 days after leaving the hospital. Specific restrictions will be written on your physical therapy prescription that is provided to you. B. You are to wear your sling/immobilizer at all times EXCEPT when performing your daily exercises, participating in physical therapy and for hygiene purposes. C. You may perform dry, daily dressing changes. Please keep your incision covered. You may shower 48 hours after surgery. Do not apply soap or any ointment/lotions directly over incision. Do not soak incision in bath tub/swimming pool. D. You may use ice as needed to operative shoulder. SPECIAL CARE INSTRUCTIONS: MEDICATION INSTRUCTIONS: *It is recommended you take Aspirin 81mg daily for four weeks post-op. VERY IMPORTANT TO READ AND REVIEW A. There are a few signs you need to watch for after you are home. Call [facility] at [phone] if you experience any of the followin. Increased severe shoulder pain. Some pain is expected especially when you exercise. 2. Increased swelling in you shoulder or arm; pain or swelling in either upper extremity. 3. Any fluid drainage from the incision. 4. Shortness of breath or chest pain. B. Please call [facility] at [phone] if you have any questions or concerns about your operation or recovery. C. Call your physician if: 1. Temperature is greater than 101 degrees (F). 2. Pain is not relieved by prescribed pain medications. 3. Increase drainage or redness from incision. 4. Unanswered questions or concerns. FOLLOW UP VISIT: Please call [facility] at [phone] to schedule a follow up appointment with Dr. Gaming or his PA in 12-14 days from your surgery date. Pending Studies at Discharge: No Stand-Alone Forms: [facility], Opioid Pain Management, Smoking Cessation Medications and DC Order Prescriptions: New aspirin [Ecotrin Low Strength] 81 mg Tablet,Delayed Release (Dr/Ec) 81 mg PO QAM Qty: 30 RF: 0 acetaminophen 500 mg Tablet 1,000 mg PO Q8 Qty: 60 RF: 0 oxycodone 5 mg Tablet 5 - 10 mg PO .Q4H-6H MDD 6 PRN (Reason: pain) Qty: 30 RF: 0 Continued levothyroxine [Synthroid] 137 mcg Tablet 137 mcg PO QAM RF: 0 labetalol 200 mg Tablet 200 mg PO BID RF: 0 meclizine 25 mg Tablet 25 mg PO UD PRN (Reason: Dizziness) RF: 0 duloxetine [Cymbalta] 60 mg Capsule,Delayed Release(Dr/Ec) 60 mg PO QAM RF: 0 solifenacin [Vesicare] 5 mg Tablet 5 mg PO QAM RF: 0 latanoprost [Xalatan] 0.005 % Drops 1 drp OPHTHALMIC (EYE) HS RF: 0 cyanocobalamin (vitamin B-12) [Vitamin B-12] 1,000 mcg Tablet 1,000 mcg PO QAM RF: 0 lorazepam 0.5 mg Tablet 0.5 mg PO BID PRN (Reason: FLYING) RF: 0 Restasis 0.05 % Dropperette 1 drp OPHTHALMIC (EYE) BID RF: 0 Systane Gel 0.3 % Gel 1 drp OPHTHALMIC (EYE) HS RF: 0 cholecalciferol (vitamin D3) [Vitamin D3] 125 mcg (5,000 unit) Tablet 125 mcg PO QAM RF: 0 Florajen 460 mg (20 billion cell) Capsule 460 mg PO DAILY RF: 0 hydrochlorothiazide 25 mg Tablet 25 mg PO DAILY RF: 0 Discontinued diclofenac sodium 1 % Gel 4 g TOPICAL BID PRN (Reason: Muscle Pain) RF: 0 meloxicam [Mobic] 15 mg Tablet 15 mg PO UD PRN (Reason: Pain) RF: 0 Discharge Orders: Discharge Order (Routine); Ordered 05/20/19 Ordered By: Alex Jones/Other Patient Handouts: Surgery Prevent DVT After Admission Data Admit Date/Time: 05/19/19 14:02 Attending Provider: Parish Gaming Admit Provider: Parish Gaming Primary Care Provider: Gayatri Boggs Other Providers: [facility],Home Health Other Interventions: Discharge Summary Assessment (RN) Last Done: 05/20/19 07:18 DC Date/Time DO NOT enter until pt leaves facility: 05/20/19 13:15
== END 2019-05-20 13:15 | disposition home health service (06) | DRG 483 ==
LOC: ASU 08:04 → 3E 14:02